=== PATIENT | female | born 1970 | race Two or more races ===

== ENCOUNTER 2018-11-10 16:47 | Emergency (ER) | payer OTHER ==
[~2018-11-10] VITALS: Ht 157.5 cm; Wt 104.3 kg
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
[2018-11-10] MEDS ORDERED: SILVER SULFADIAZINE 50 GM JAR TP STA (16:59)
[2018-11-10] MEDS ORDERED: KETOROLAC TROMETHAMINE INJ 60 MG/2 ML VIAL IM ONE (17:00)
[2018-11-10] MEDS ORDERED: KETOROLAC TROMETHAMINE 15 MG/ML VIAL ONE (17:06)
--- NOTE | 2018-11-10 17:30 | NUR ---
PATIENT REFUSED SILVADENE CREAM. PER PATIENT "TOO PAINFUL RIGHT NOW, I DON'T WANT IT BEING TOUCHED"
--- NOTE | 2018-11-10 17:33 | NUR ---
Cammie beltran in ED - 11/10/18 at 1759 by ZAK Patient discharged to home in stable condition. Written and verbal after care instructions given. Patient verbalizes understanding of instruction.
[2018-11-10 17:34] VITALS: BP 147/78
[2018-11-10] MEDS ORDERED: SILVER SULFADIAZINE CREAM 25 GM TUBE ONE (17:54)
--- NOTE | 2018-11-10 17:55 | NUR ---
PATIENT AGREED TO APPLY SILVADENE CREAM.
--- NOTE | 2018-11-10 18:16 | NUR ---
IV removed. Catheter intact and site benign. Pressure and 4x4 applied to site. No bleeding noted.Patient discharged to home in stable condition. Written and verbal after care instructions given. Patient verbalizes understanding of instruction.
== END 2018-11-10 18:20 | disposition home or self-care (01) ==
LOC: ER 16:49
DX: T21.11XA Burn of first degree of chest wall, initial encounter (principal); T21.12XA Burn of first degree of abdominal wall, initial encounter; I10 Essential (primary) hypertension; E11.9 Type 2 diabetes mellitus without complications; X19.XXXA Contact with other heat and hot substances, initial encounter; Y93.89 Activity, other specified; Y92.89 Other specified places as the place of occurrence of the external cause; Y99.8 Other external cause status
CPT/HCPCS: 16000; 96372; 99284; J1885

== ENCOUNTER 2018-11-11 20:35 | Emergency (ER) | payer OTHER ==
[~2018-11-11] VITALS: Ht 157.5 cm; Wt 104.3 kg
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
[2018-11-11] MEDS ORDERED: ONDANSETRON 4 MG TAB.RAPDIS SL ONE (21:00)
[2018-11-11] MEDS ORDERED: MORPHINE SULFATE INJ 2 MG/ML DISP.SYRIN IM ONE (21:00)
[2018-11-11] MEDS ORDERED: MORPHINE SULFATE INJ 4 MG/ML DISP.SYRIN ONE (21:05)
[2018-11-11] MEDS ORDERED: ONDANSETRON 4 MG TAB.RAPDIS ONE (21:05)
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
--- NOTE | 2018-11-11 21:32 | NUR ---
CALLED CHARGE NURSE BACK AT [facility]. ON PHONE WITH DR SAHNI NOW.
[2018-11-11] MEDS ORDERED: TDAP [DIPH/PERTUSSIS/TET] 0.5 ML VIAL IM ONE ×2 (22:30→23:24)
[2018-11-11 22:31] VITALS: BP 112/54
--- NOTE | 2018-11-11 22:36 | NUR ---
[facility] ACCEPTING PT. ACCEPTING DR GUILLORY. NUMBER FOR REPORT [phone] AMBULANCE ETA 1:30 HRS.
--- NOTE | 2018-11-11 22:54 | NUR ---
REPORT GIVEN TO YAO MOLINA AT [facility]
== END 2018-11-12 01:01 | disposition short-term general hospital (02) ==
LOC: ER 20:39
DX: T21.21XA Burn of second degree of chest wall, initial encounter (principal); T21.22XA Burn of second degree of abdominal wall, initial encounter; T31.0 Burns involving less than 10% of body surface; I10 Essential (primary) hypertension; E11.9 Type 2 diabetes mellitus without complications; X08.8XXA Exposure to other specified smoke, fire and flames, initial encounter; Y93.89 Activity, other specified; Y92.89 Other specified places as the place of occurrence of the external cause; Y99.8 Other external cause status
CPT/HCPCS: 90471; 90715; 96372; 99285; A6403; J2270; Q0162

== ENCOUNTER 2022-12-06 21:53 | Emergency (ER) | payer OTHER ==
[~2022-12-06] VITALS: Ht 160 cm; Wt 98.9 kg
[2022-12-06] MEDS ORDERED: NITROGLYCERIN 0.4 MG/TAB BOTTLE SL ONE (23:00)
[2022-12-06] MEDS ORDERED: ASPIRIN 325 MG TABLET PO ONE (23:00)
[2022-12-06] MEDS ORDERED: ACETAMINOPHEN ES 500 MG TABLET PO ONE (23:00)
[2022-12-06] MEDS ORDERED: ONDANSETRON HCL/PF 4 MG/2 ML VIAL IVP ONE (23:00)
[2022-12-06] MEDS ORDERED: NITROGLYCERIN 0.4 MG/TAB BOTTLE ONE (23:04)
[2022-12-06] MEDS ORDERED: ACETAMINOPHEN ES 500 MG TABLET ONE (23:04)
[2022-12-06] MEDS ORDERED: ONDANSETRON HCL/PF 4 MG/2 ML VIAL ONE (23:04)
[2022-12-06] MEDS ORDERED: ASPIRIN 325 MG TABLET ONE (23:05)
[2022-12-06 23:13] LABS: BASOPHILS # (AUTO) 0.1 K/uL (0.0-0.2); BASOPHILS % (AUTO) 0.7 % (0.0-2.0); EOSINOPHILS # (AUTO) 0.1 K/uL (0.0-0.7); EOSINOPHILS % (AUTO) 0.8 % (0.0-6.0); HEMATOCRIT 40 % (33-45); HEMOGLOBIN 13.2 g/dL (11.5-14.8); LYMPHOCYTES # (AUTO) 2.9 K/uL (0.8-4.8); LYMPHOCYTES % (AUTO) 39.4 % (20.0-44.0); MEAN CORPUSCULAR HEMOGLOBIN 29 PG (26.0-33.0); MEAN CORPUSCULAR HGB CONC 33 g/dl (31.0-36.0); MEAN CORPUSCULAR VOLUME 87 fL (82-100); MONOCYTES # (AUTO) 0.5 K/uL (0.1-1.30); MONOCYTES % (AUTO) 6.5 % (2.0-12.0); NEUTROPHILS # (AUTO) 3.8 K/uL (1.8-8.9); NEUTROPHILS % (AUTO) 52.6 % (43.0-81.0); PLATELET COUNT (AUTO) 243 K/uL (150-450); RED BLOOD CELL COUNT(AUTO) 4.61 MIL/uL (4.0-5.2); RED CELL DISTRIBUTION WIDTH 14.1 % (11.5-15.0); WHITE BLOOD COUNT (AUTO) 7.3 K/uL (4.3-11.0)
[2022-12-06 23:46] LABS: CALCIUM, SERUM 9.1 mg/dL (8.5-10.1); CARBON DIOXIDE 22 mmol/L (21-32); CHLORIDE 100 mmol/L (98-107); CREATININE 0.7 mg/dL (0.6-1.3); GLUCOSE 314 mg/dL (74-106); POTASSIUM 3.4 mmol/L (3.5-5.1); SODIUM SERUM 134 mmol/L (136-145); UREA NITROGEN, BLOOD 19 mg/dL (7-18)
[2022-12-06 23:58] LABS: NT-PRO BNP 27 pg/mL (0-125)
[2022-12-07] MEDS ORDERED: IV NS 0.9% 250 ML IV ONE (00:14)
[2022-12-07] MEDS ORDERED: IOHEXOL-350 100 ML VIAL IV ONE (00:14)
[2022-12-07] MEDS ORDERED: CT SWABBABLE VALVE TRANS SET 1 EA INFUS.SET MC ONE (00:14)
[2022-12-07] MEDS ORDERED: IV NS 0.9% 1,000 ML BAG IV ONE (00:30)
[2022-12-07] MEDS ORDERED: KETO10TA2 PO (04:55)
[2022-12-07] MEDS ORDERED: CYCL5TAB PO (04:55)
[2022-12-07 05:17] VITALS: BP 121/55; TEMP 97.8; O2SAT 98
== END 2022-12-07 05:18 | disposition home or self-care (01) ==
LOC: ER 21:56
DX: R07.9 Chest pain, unspecified (principal); R06.02 Shortness of breath; I10 Essential (primary) hypertension; E11.9 Type 2 diabetes mellitus without complications
CPT/HCPCS: 99285; 96374; 71275; 71045; 93005; 85025; 80048; 36415 ×2; 84484 ×2; 83880; 82962; 96361; J2405; J7030; J7050; Q9967

== ENCOUNTER 2023-05-07 21:33 | Emergency (ER) | payer OTHER ==
[~2023-05-07] VITALS: Ht 160 cm; Wt 81.6 kg
[~2023-05-07 21:33] MED LIST: CYCL5TAB PO; KETO10TA2 PO
[2023-05-07] MEDS ORDERED: TRAM50TA2 PO (22:49)
[2023-05-07] MEDS ORDERED: TRAMADOL HCL 50 MG TABLET ONE (23:00)
[2023-05-07] MEDS: TRAMADOL HCL 50 MG TABLET PO ONE (23:01)
[2023-05-07 23:08] VITALS: BP 134/82; TEMP 98; O2SAT 100
== END 2023-05-07 23:08 | disposition home or self-care (01) ==
LOC: ER 21:38
DX: B02.9 Zoster without complications (principal); Z76.0 Encounter for issue of repeat prescription; I10 Essential (primary) hypertension; E11.9 Type 2 diabetes mellitus without complications

== ENCOUNTER 2023-05-15 23:54 | Emergency (ER) | payer OTHER ==
[~2023-05-15] VITALS: Ht 162.6 cm; Wt 97.5 kg
[~2023-05-15 23:54] MED LIST changes: +TRAM50TA2 PO
[2023-05-16 00:20] VITALS: TEMP 98.7
[2023-05-16 00:23] VITALS: BP 146/72; O2SAT 96
== END 2023-05-16 00:41 | disposition home or self-care (01) ==
LOC: ER 23:55
DX: G89.29 Other chronic pain (principal); M54.9 Dorsalgia, unspecified; I10 Essential (primary) hypertension; E11.9 Type 2 diabetes mellitus without complications

== ENCOUNTER 2024-01-18 12:55 | Inpatient (IN) | payer OTHER ==
[~2024-01-18] VITALS: Ht 165.1 cm; Wt 83.0 kg
[2024-01-18 13:37] LABS: BASOPHILS % (AUTO) 0.1 % (0.0-2.0)
[2024-01-18] MEDS: CEFEPIME 1 GM in IV D5W 50 ML IV ONE (13:40)
[2024-01-18 13:44] LABS: HEMATOCRIT 37 % (33-45); HEMOGLOBIN 12.6 g/dL (11.5-14.8); LYMPHOCYTES # (AUTO) 0.8 K/uL (0.8-4.8); LYMPHOCYTES % (AUTO) 2.6 % (20.0-44.0); MEAN CORPUSCULAR HEMOGLOBIN 29 PG (26.0-33.0); MEAN CORPUSCULAR HGB CONC 34 g/dl (31.0-36.0); MEAN CORPUSCULAR VOLUME 87 fL (82-100); MONOCYTES # (AUTO) 0.7 K/uL (0.1-1.30); MONOCYTES % (AUTO) 2.3 % (2.0-12.0); NEUTROPHILS # (AUTO) 29.5 K/uL (1.8-8.9); PLATELET COUNT (AUTO) 399 K/uL (150-450); RED BLOOD CELL COUNT(AUTO) 4.29 MIL/uL (4.0-5.2); RED CELL DISTRIBUTION WIDTH 15.2 % (11.5-15.0)
[2024-01-18 13:54] LABS: ALANINE AMINOTRANSFERASE 42 U/L (12-78); ALBUMIN 3.1 g/dL (3.4-5.0); ALKALINE PHOSPHATASE 212 U/L (46-116); ASPARTATE AMINOTRANSFERASE 57 U/L (15-37); BILIRUBIN,DIRECT 0.4 mg/dL (0.0-0.2); BILIRUBIN,TOTAL 1.6 mg/dL (0.2-1.0); CALCIUM, SERUM 8.8 mg/dL (8.5-10.1); CARBON DIOXIDE 23 mmol/L (21-32); CHLORIDE 100 mmol/L (98-107); CREATININE 1.2 mg/dL (0.6-1.3); GLUCOSE 182 mg/dL (74-106); POTASSIUM 3.9 mmol/L (3.5-5.1); SODIUM SERUM 134 mmol/L (136-145); TOTAL PROTEIN, SERUM 7.5 g/dL (6.4-8.2); UREA NITROGEN, BLOOD 19 mg/dL (7-18)
[2024-01-18] MEDS: IV NS 0.9% 1,000 ML BAG IV ONE (14:00)
[2024-01-18 14:01] LABS: INR 1.34 (0.91-1.10); PARTIAL THROMBOPLASTIN TIME 27.3 SEC (24.3-34.3); PROTHROMBIN TIME 13.9 SECS (9.2-11.1)
[2024-01-18] MEDS: ACETAMINOPHEN 650 MG/SUPP.RECT RC ONE (14:15)
[2024-01-18] MEDS ORDERED: ACETAMINOPHEN 650 MG/SUPP.RECT RC ONE (14:18)
[2024-01-18 14:40] LABS: LACTIC ACID 4.2 mmol/L (0.4-2.0)
[2024-01-18] MEDS: VANCOMYCIN 1 GM in IV D5W 250 ML IV ONE (14:45)
[2024-01-18 15:02] LABS: APPEARANCE,URINE SLIGHTLY CLOUDY (CLEAR); BILIRUBIN,URINE NEGATIVE (NEGATIVE); BLOOD, URINE 2+ Ery/uL (NEGATIVE); COLOR,URINE YELLOW (YELLOW); KETONES,URINE TRACE mg/dL (NEGATIVE); LEUKOCYTE ESTERASE ,URINE TRACE (NEGATIVE); NITRITE, URINE NEGATIVE (NEGATIVE); PROTEIN,URINE 2+ mg/dl (NEGATIVE); UGLUCOSE 2+ mg/dL (NEGATIVE)
[2024-01-18 15:26] LABS: ADD URINE CULTURE YES; BACTERIA,URINE Many /HPF (None Seen); SQUAMOUS EPITHELIAL CELL,UR None Seen /HPF (None Seen); WBC,URINE 81-100 /HPF (0-3)
[2024-01-18 15:41] LABS: BAND % (MANUAL) 4 % (0.0-5.0); BASOPHILS % (MANUAL) 0 % (0.0-2.0); EOSINOPHILS % (MANUAL) 0 % (0-4); LYMPHOCYTES % (MANUAL) 4 % (16-48); METAMYELOCYTES % 1 % (0-0); MONOCYTES % (MANUAL) 2 % (0-11.0); NEUTROPHILS % (MANUAL) 89 (42-76); PLATELET ESTIMATE ADEQUATE
[2024-01-18] MEDS ORDERED: KETOROLAC TROMETHAMINE 15 MG/ML VIAL ONE (16:13)
[2024-01-18] MEDS: KETOROLAC TROMETHAMINE 15 MG/ML VIAL IV ONE (16:25)
[2024-01-18] MEDS ORDERED: ONDANSETRON HCL/PF 4 MG/2 ML VIAL IVP PRN (17:00)
[2024-01-18] MEDS ORDERED: MAG HYDROX/AL HYDROX/SIMETH 30 ML UDC PO PRN (17:00)
[2024-01-18] MEDS ORDERED: Z GUARD REMEDY 4 OZ OINT TP PRN (17:00)
[2024-01-18] MEDS ORDERED: MAGNESIUM HYDROXIDE 30 ML UDC PO PRN (17:00)
[2024-01-18] MEDS ORDERED: NOREPINEPHRINE 8 MG in IV D5W 242 ML IV PRN ×2 (17:30→20:00)
[2024-01-18] MEDS: IV NS 0.9% 500 ML BAG IV ONE (17:30)
[2024-01-18] MEDS: IV NS 0.9% 1,000 ML IV SCH (18:43)
[2024-01-18 19:00] VITALS: BP 89/47; O2SAT 97
[2024-01-18 20:00] VITALS: BP 91/48; TEMP 99.1; O2SAT 97
[2024-01-18] MEDS ORDERED: DEXTROSE 50%-WATER 50 ML DISP.SYRIN IV PRN (20:00)
[2024-01-18] MEDS ORDERED: TRAM50TA2 PO (20:20)
[2024-01-18] MEDS ORDERED: GABA600T12 PO (20:20)
[2024-01-18] MEDS ORDERED: METF-442 PO (20:20)
[2024-01-18] MEDS: HYDROCORTISONE SOD SUCCINATE 100 MG/2 ML VIAL IV SCH (20:55)
[2024-01-18] MEDS: ACETAMINOPHEN 325 MG TABLET PO PRN (20:55)
[2024-01-18 21:00] VITALS: BP 102/62; O2SAT 99
[2024-01-18] MEDS: GABAPENTIN 300 MG CAPSULE PO SCH (21:26)
[2024-01-18] MEDS: BLOOD SUGAR DIAGNOSTIC 1 EACH STRIP IN SCH (21:37)
[2024-01-18] MEDS: INSULIN REGULAR, HUMAN 100 UNIT/ML 3 ML VIAL SQ PRN (21:40)
[2024-01-18 22:00] VITALS: BP 87/61; O2SAT 100
[2024-01-18] MEDS: CEFEPIME 1 GM in IV D5W 50 ML IV SCH (22:00)
[2024-01-18 23:00] VITALS: BP 97/53; O2SAT 98
[2024-01-19] VITALS (22 sets, daily range): BP systolic 89–123; BP diastolic 47–81; TEMP 98.1–98.8; O2SAT 97–100
[2024-01-19] MEDS: VANCOMYCIN 750 MG in IV D5W 250 ML IV SCH (01:13)
[2024-01-19] MEDS: TRAMADOL HCL 50 MG TABLET PO ONE (03:48)
[2024-01-19 04:56] LABS: HEMATOCRIT 30 % (33-45); LYMPHOCYTES # (AUTO) 0.5 K/uL (0.8-4.8); LYMPHOCYTES % (AUTO) 2.5 % (20.0-44.0); MEAN CORPUSCULAR HEMOGLOBIN 29 PG (26.0-33.0); MEAN CORPUSCULAR HGB CONC 34 g/dl (31.0-36.0); MEAN CORPUSCULAR VOLUME 87 fL (82-100); MONOCYTES # (AUTO) 0.6 K/uL (0.1-1.30); MONOCYTES % (AUTO) 2.8 % (2.0-12.0); NEUTROPHILS # (AUTO) 20.7 K/uL (1.8-8.9); NEUTROPHILS % (AUTO) 94.7 % (43.0-81.0); PLATELET COUNT (AUTO) 283 K/uL (150-450); RED BLOOD CELL COUNT(AUTO) 3.43 MIL/uL (4.0-5.2); RED CELL DISTRIBUTION WIDTH 15.4 % (11.5-15.0); WHITE BLOOD COUNT (AUTO) 21.8 K/uL (4.3-11.0)
[2024-01-19 04:58] LABS: CALCIUM, SERUM 7.8 mg/dL (8.5-10.1); CREATININE 0.9 mg/dL (0.6-1.3); MAGNESIUM 1.9 mg/dL (1.8-2.4); PHOSPHORUS 2.2 mg/dL (2.5-4.9); POTASSIUM 3.7 mmol/L (3.5-5.1)
[2024-01-19 06:23] LABS: BAND % (MANUAL) 1 % (0.0-5.0); LYMPHOCYTES % (MANUAL) 3 % (16-48); MONOCYTES % (MANUAL) 3 % (0-11.0); NEUTROPHILS % (MANUAL) 93 (42-76); PLATELET ESTIMATE ADEQUATE
[2024-01-19 10:09] LABS: THYROID STIMULATING HORMONE 0.41 uIU/mL (0.358-3.74)
[2024-01-19] MEDS: PANTOPRAZOLE 40 MG/PACK PACK NG SCH (10:47)
[2024-01-19] MEDS: ASPIRIN 81 MG TAB.CHEW PO SCH (10:47)
[2024-01-19] MEDS: ENOXAPARIN SODIUM 40 MG/0.4 ML DISP.SYRIN SQ SCH (10:48)
[2024-01-19] MEDS: K PHOS NEUTRAL 250 MG TABLET PO ONE (15:57)
[2024-01-19] MEDS: IV NS 0.9% 1,000 ML IV PRN (18:04)
[2024-01-19] MEDS: KETOROLAC TROMETHAMINE 15 MG/ML VIAL IV PRN (20:22)
[2024-01-20] VITALS: BP 107/60; TEMP 98.3; O2SAT 100
[2024-01-20 04:00] VITALS: BP 120/66; TEMP 98.4; O2SAT 100
[2024-01-20 07:00] VITALS: BP 114/62; TEMP 98.6; O2SAT 98
[2024-01-20 07:03] LABS: ALANINE AMINOTRANSFERASE 34 U/L (12-78); ALBUMIN 2.2 g/dL (3.4-5.0); ALKALINE PHOSPHATASE 144 U/L (46-116); ASPARTATE AMINOTRANSFERASE 18 U/L (15-37); BILIRUBIN,TOTAL 0.4 mg/dL (0.2-1.0); CALCIUM, SERUM 7.8 mg/dL (8.5-10.1); CARBON DIOXIDE 23 mmol/L (21-32); CHLORIDE 107 mmol/L (98-107); CREATININE 0.7 mg/dL (0.6-1.3); GLUCOSE 233 mg/dL (74-106); MAGNESIUM 2.1 mg/dL (1.8-2.4); PHOSPHORUS 2.3 mg/dL (2.5-4.9); POTASSIUM 3.1 mmol/L (3.5-5.1); SODIUM SERUM 139 mmol/L (136-145); TOTAL PROTEIN, SERUM 5.8 g/dL (6.4-8.2); UREA NITROGEN, BLOOD 16 mg/dL (7-18)
[2024-01-20 07:04] LABS: BASOPHILS % (AUTO) 0.1 % (0.0-2.0); HEMATOCRIT 27 % (33-45); LYMPHOCYTES % (AUTO) 5.3 % (20.0-44.0); MEAN CORPUSCULAR HEMOGLOBIN 28 PG (26.0-33.0); MEAN CORPUSCULAR HGB CONC 33 g/dl (31.0-36.0); MEAN CORPUSCULAR VOLUME 85 fL (82-100); MONOCYTES # (AUTO) 0.9 K/uL (0.1-1.30); MONOCYTES % (AUTO) 4.5 % (2.0-12.0); NEUTROPHILS # (AUTO) 17.6 K/uL (1.8-8.9); NEUTROPHILS % (AUTO) 90.1 % (43.0-81.0); PLATELET COUNT (AUTO) 252 K/uL (150-450); RED BLOOD CELL COUNT(AUTO) 3.16 MIL/uL (4.0-5.2); RED CELL DISTRIBUTION WIDTH 15.5 % (11.5-15.0); WHITE BLOOD COUNT (AUTO) 19.5 K/uL (4.3-11.0)
[2024-01-20] MEDS ORDERED: POTASSIUM PHOSPHATE MM 15 MMOL in IV NS 0.9% 250 ML IV SCH (10:30)
[2024-01-20] MEDS: HYDROCORTISONE SOD SUCCINATE 100 MG/2 ML VIAL IV SCH (10:32)
[2024-01-20] MEDS: POTASSIUM PHOSPHATE MM 7.5 MMOL in IV NS 0.9% 100 ML IV SCH (10:41)
[2024-01-20] MEDS ORDERED: VANCOMYCIN 1 GM in IV D5W 250 ML IV SCH (15:00)
[2024-01-20 16:00] VITALS: BP 119/58; TEMP 98.1; O2SAT 100
[2024-01-20] MEDS: VANCOMYCIN 1 GM in IV D5W 250 ML IV SCH (16:58)
[2024-01-20 20:00] VITALS: BP 109/74; TEMP 98.6; O2SAT 99
[2024-01-20 21:58] VITALS: BP 109/74; TEMP 98.6; O2SAT 99
[2024-01-21 06:34] LABS: BASOPHILS % (AUTO) 0.3 % (0.0-2.0); HEMATOCRIT 29 % (33-45); HEMOGLOBIN 9.9 g/dL (11.5-14.8); LYMPHOCYTES # (AUTO) 1.7 K/uL (0.8-4.8); LYMPHOCYTES % (AUTO) 10.4 % (20.0-44.0); MEAN CORPUSCULAR HEMOGLOBIN 29 PG (26.0-33.0); MEAN CORPUSCULAR HGB CONC 34 g/dl (31.0-36.0); MEAN CORPUSCULAR VOLUME 84 fL (82-100); MONOCYTES # (AUTO) 0.7 K/uL (0.1-1.30); MONOCYTES % (AUTO) 4.6 % (2.0-12.0); NEUTROPHILS # (AUTO) 13.4 K/uL (1.8-8.9); NEUTROPHILS % (AUTO) 84.7 % (43.0-81.0); PLATELET COUNT (AUTO) 308 K/uL (150-450); RED BLOOD CELL COUNT(AUTO) 3.44 MIL/uL (4.0-5.2); RED CELL DISTRIBUTION WIDTH 15.4 % (11.5-15.0); WHITE BLOOD COUNT (AUTO) 15.8 K/uL (4.3-11.0)
[2024-01-21 07:00] VITALS: BP 123/57; TEMP 97.5; O2SAT 100
[2024-01-21 07:04] LABS: CALCIUM, SERUM 9.1 mg/dL (8.5-10.1); CREATININE 0.7 mg/dL (0.6-1.3); MAGNESIUM 1.9 mg/dL (1.8-2.4); PHOSPHORUS 2.2 mg/dL (2.5-4.9); POTASSIUM 3.3 mmol/L (3.5-5.1)
[2024-01-21] MEDS: POTASSIUM CHLORIDE 20 MEQ TAB.PRT.SR PO ONE (10:12)
[2024-01-21] MEDS: CEFEPIME 2 GM in IV D5W 100 ML IV SCH (12:17)
[2024-01-21 16:00] VITALS: BP 133/74; TEMP 98.1; O2SAT 100
[2024-01-21] MEDS: K PHOS NEUTRAL 250 MG TABLET PO ONE (16:32)
[2024-01-21 20:00] VITALS: BP 150/66; TEMP 98.1; O2SAT 99
[2024-01-21] MEDS: DOCUSATE SODIUM 100 MG CAPSULE PO SCH (22:09)
[2024-01-21] MEDS: POLYETHYLENE GLYCOL 3350 17 GM POWD.PACK PO SCH (22:10)
[2024-01-22 06:44] LABS: CALCIUM, SERUM 9.1 mg/dL (8.5-10.1); CREATININE 0.7 mg/dL (0.6-1.3); MAGNESIUM 1.8 mg/dL (1.8-2.4); PHOSPHORUS 3.1 mg/dL (2.5-4.9)
[2024-01-22 07:17] LABS: BASOPHILS % (AUTO) 0.3 % (0.0-2.0); HEMATOCRIT 30 % (33-45); HEMOGLOBIN 9.8 g/dL (11.5-14.8); LYMPHOCYTES % (AUTO) 16.3 % (20.0-44.0); MEAN CORPUSCULAR HEMOGLOBIN 28 PG (26.0-33.0); MEAN CORPUSCULAR HGB CONC 33 g/dl (31.0-36.0); MEAN CORPUSCULAR VOLUME 85 fL (82-100); MONOCYTES # (AUTO) 0.9 K/uL (0.1-1.30); MONOCYTES % (AUTO) 7.4 % (2.0-12.0); NEUTROPHILS # (AUTO) 9.2 K/uL (1.8-8.9); PLATELET COUNT (AUTO) 294 K/uL (150-450); RED BLOOD CELL COUNT(AUTO) 3.51 MIL/uL (4.0-5.2); RED CELL DISTRIBUTION WIDTH 15.4 % (11.5-15.0); WHITE BLOOD COUNT (AUTO) 12.2 K/uL (4.3-11.0)
[2024-01-22 07:30] VITALS: BP 145/67; TEMP 97.7; O2SAT 100
[2024-01-22 16:00] VITALS: BP 129/62; TEMP 98.1; O2SAT 100
[2024-01-22] MEDS: LEVOFLOXACIN (250MG) 250 MG TABLET PO SCH (22:02)
[2024-01-23] MEDS ORDERED: LEVO250T59 PO (07:32)
[2024-01-23 07:42] LABS: CALCIUM, SERUM 8.9 mg/dL (8.5-10.1); CREATININE 0.6 mg/dL (0.6-1.3); POTASSIUM 3.8 mmol/L (3.5-5.1)
[2024-01-23 08:00] VITALS: BP 135/56; TEMP 98.2; O2SAT 100
== END 2024-01-23 13:00 | disposition home health service (06) | DRG 720 ==
LOC: ER 13:02 → ICU 17:39 → MED 01-19 13:50 → TELE 01-19 15:22 → MED 01-20 10:17
PROVIDERS: ADMIT Internal Medicine; ATTEND Nurse Practitioner Acute Care
PROC: 05HB33Z Insertion of Infusion Device into Right Basilic Vein, Percutaneous Approach (ICD-10-PCS; principal; 2024-01-18)
PROC: B54MZZA Ultrasonography of Right Upper Extremity Veins, Guidance (ICD-10-PCS; 2024-01-18)
DX: A41.51 Sepsis due to Escherichia coli [E. coli] (principal); G93.41 Metabolic encephalopathy; I21.A1 Myocardial infarction type 2; E87.20 Acidosis, unspecified; D68.69 Other thrombophilia; E87.1 Hypo-osmolality and hyponatremia; I95.9 Hypotension, unspecified; N10 Acute pyelonephritis; E11.9 Type 2 diabetes mellitus without complications; E66.01 Morbid (severe) obesity due to excess calories; E86.1 Hypovolemia; I10 Essential (primary) hypertension; Z87.442 Personal history of urinary calculi; Z16.12 Extended spectrum beta lactamase (ESBL) resistance; Z68.30 Body mass index [BMI] 30.0-30.9, adult; N20.0 Calculus of kidney
CPT/HCPCS: 36415; 70450-TC; 71045-TC; 73502; 80048-TC; 80053-TC; 80061-TC; 80076-TC; 80202-TC; 81001; 82962-TC; 83605-TC; 83735-TC; 84100-TC; 84439-TC; 84443-TC; 84484-TC; 85025-TC; 85730-TC; 87040-TC; 87081-TC; 87086-TC; 87186-TC; 93307-TC; A4223; G0378; J0692; J1650; J1720; J1815; J1885; J3370; J3371; J3490; J7030; J7040; J7042; J7050; J7060